=== PATIENT | female | born 1995 | race Caucasian/White ===

== ENCOUNTER 2017-12-17 16:10 | Emergency (ER) | payer BC ==
[2017-12-17 16:40] VITALS: BP 115/75
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
== END 2017-12-17 17:20 | disposition home or self-care (01) ==
LOC: UCCORT 16:10
DX: T17.820A Food in other parts of respiratory tract causing asphyxiation, initial encounter (principal); X58.XXXA Exposure to other specified factors, initial encounter; Y93.89 Activity, other specified; Y92.9 Unspecified place or not applicable; Z88.5 Allergy status to narcotic agent
CPT/HCPCS: 99212; G0463